=== PATIENT | female | born 1975 | race Caucasian/White ===

== ENCOUNTER 2016-11-25 05:14 | Day surgery (SDC) | payer OTHER ==
[2016-11-24 13:48] VITALS: BMI 26.1
[2016-11-25] MEDS ORDERED: MIDAZOLAM HCL 2 MG/2 ML SINGLE DOSE VIAL ONE (10:20)
[2016-11-25] MEDS ORDERED: PROPOFOL 20 ML ONE ×2 (10:20)
[2016-11-25] MEDS ORDERED: KETOROLAC TROMETHAMINE 30 MG/1 ML VIAL ONE (10:23)
[2016-11-25] MEDS ORDERED: ceFAZolin SODIUM 1 GM VIAL ONE (10:23)
[2016-11-25] MEDS ORDERED: LIDOCAINE HCL 1%, 10 MG/ML (20ML VIAL) ONE (10:57)
[2016-11-25] MEDS ORDERED: BUPIVACAINE HCL/PF 0.5% (5MG/ML) 10 ML VIAL ONE (10:57)
[2016-11-25] MEDS ORDERED: BUPIVACAINE HCL/PF 0.5% (5MG/ML) 10 ML VIAL IJ ONE (11:22)
[2016-11-25] MEDS ORDERED: LIDOCAINE HCL 1%, 10 MG/ML (50 mL VIAL) IJ ONE (11:22)
[2016-11-25] MEDS ORDERED: oxyCODONE HCL 5 MG TABLET PO PRN (11:52)
[2016-11-25] MEDS ORDERED: ONDANSETRON 4 MG/2 ML VIAL IVPUSH PRN (11:52)
--- NOTE | 2016-11-25 11:53 | HP ---
Satellite [facility] - Chief Complaint Chief Complaint: right Dequervain's History of Present Illness: right wrist pain History Source: Patient Limitations to Obtaining History: No Limitations - Past Medical History Allergies/Adverse Reactions: Allergies Allergy/AdvReac Type Severity Reaction Status Date / Time No Known Allergies Allergy Verified 11/24/16 13:40 ...LMP: 11/06/16 - Current Medications Current Medications: Home Medications Medication Instructions Recorded Loratadine [Claritin -] 10 mg PO DAILY #20 tablet 04/24/15 Ibuprofen [Motrin -] 600 mg PO TID #21 tablet 03/30/16 Acetaminophen [Tylenol] 650 mg PO PRN PRN 11/24/16 Satellite Physical Exam - Physical Examination Vital Signs: Vital Signs Period Temp Pulse Resp BP Sys/Louise Pulse Ox Last 24 Hr 97.9 F 58 18 108/66 100 General Appearance: Well Nourished ENT: Clear Lung: Clear to auscultation Heart: Regular rate & rhythm Breasts: Soft Abdomen: Soft Extremities: No edema Satellite Impression/Plan - Impression/Plan Impression: right Dequervain's Operative Procedure: right Dequervain's release, tendon sheath excision Date to be Performed: 11/25/16
--- NOTE | 2016-11-25 11:56 | OP ---
Operative Note - Note: Operative Date: 11/25/16 Pre-Operative Diagnosis: right Dequervain's Operation: right Dequervain's release, tendon sheath excision Post-Operative Diagnosis: Same as Pre-op Surgeon: Maycol Hutchins Procedure Writer: John Keane Anesthesiologist/RETAIL PERFORMANCE COACH: Anna Garnett Anesthesia: General, Local Specimens Removed: tendon sheath Estimated Blood Loss (mls): 0 Drains, Volume Out (mls): 0 Blood Volume Replaced (mls): 0 Fluid Volume Replaced (mls): 500 Operative Report Dictated: Yes
[2016-11-25] MEDS ORDERED: LACTATED RINGERS SOLUTION 1,000 ML IV SCH (12:00)
[2016-11-25] MEDS ORDERED: ACETAMINOPHEN INJECTION 100 ML IVPB ONE (13:16)
[2016-11-25] MEDS ORDERED: ACETAMINOPHEN 1000 MG/100 ML VIAL (NON FORMULARY) IVPB ONE ×2 (13:17→13:18)
[2016-11-25 14:22] VITALS: TEMP 98
[2016-11-25 17:26] VITALS: BP 115/77; PULSE 64
--- NOTE | 2016-11-26 13:07 | SPEC ---
DATE OF OPERATION: 11/25/2016 SURGERY: Right de Quervain release and tendon sheath excision. PREOPERATIVE DIAGNOSIS: Right de Quervain tenosynovitis. POSTOPERATIVE DIAGNOSIS: Right de Quervain tenosynovitis, SURGEON: Maycol Hutchins MD ASSISTANTS: Priyanka Ribera MD, Anna Garnett CRNA DRAINS: None. COMPLICATIONS: None. BLOOD LOSS: None. BLOOD GIVEN: None. FLUID REPLACEMENT: 500 mL SPECIMENS: Tendon sheath, right wrist. INDICATION: This patient is a 41-year-old female with a preoperative diagnosis of recurrent, severe right de Quervain tenosynovitis. After understanding the potential risks, complications, alternatives, benefits of surgery and risks of nonsurgical treatment., the patient elected to undergo this procedure. She received 1 gm of IV Ancef. PROCEDURE: The patient was brought to the operating room, a peripheral IV was placed and IV sedation was given. MAC anesthesia was induced. The tourniquet was applied to the right arm. The entire care was done under 3.8 loupe magnification. The right upper extremity was prepped and draped in a sterile fashion. A longitudinal incision was marked out with a marking pen. A mix of 10 mL of 0.5% Marcaine and 1% lidocaine was injected in and around the surgical area. The right upper extremity was then elevated and exsanguinated with an Esmarch bandage and the tourniquet was inflated to 250 mmHg. A no. 15 scalpel blade was utilized to make a longitudinal incision. Subcutaneous hemostasis was achieved with bipolar cautery. Dissection was done with Littler scissors down to the first dorsal wrist compartment. Great care was taken to directly visualize and preserve all crossing sensory branches of the sensory nerve. Under direct visualization, the first dorsal wrist compartment was visualized and it was freed up from some adhesions with a [place] elevator. Next, a fresh no. 15 scalpel blade was utilized to open up the first dorsal wrist compartment, starting proximally and going distally both with the no. 15 scalpel blade and with the Littler scissors. The anatomy was seen to have multiple slips of the abductor pollicis longus. The extensor pollicis brevis was in its own tendon tunnel. This was also released and the wall between the two excised. The roof of the tunnel was excised. This was all passed off the field as specimen. The volar lip of the first dorsal wrist compartment was preserved to prevent volar subluxation. The release was completed both distally and proximally in both compartments. I was able to bring out all slips through the wound with a Ragnell retractor and there were no obvious points of compression. The area was copiously irrigated and washed out, explored once more and I did not see any other abnormal tissue. Therefore, closure was begun. Undyed 4-0 Vicryl was used to close the deep dermal layer. Final skin reapproximation was done with a running subcuticular 4-0 Biosyn stitch. The area was then washed and dried, covered with Steri-Strips, 4 x 4's, Fluffs between the fingers. An Ortho-Glass thumb spica splint was applied and wrapped with Sandi and Coban. The tourniquet was taken down after a total tourniquet time of 22 minutes. There were no complications during the case. The patient tolerated the procedure quite well and was brought to the ambulatory recovery room in stable condition. PRIYANKA RIBERA M.D. [id number]
--- NOTE | 2016-11-26 15:29 | PATH ---
Surgical Pathology Report Patient Name: ION REAVES [facility]. Rec. #: [id number] /Age/Gender: 1975 (Age: 41) / F Account: [id number] Location: [facility] SURGICAL Taken: 11/25/2016 Received: 11/25/2016 Reported: 11/26/2016 Physicians: Wilfredo Rebolledo M.D. Specimen(s) Received RIGHT TENOSYNOVIUM Clinical History Right tenosynovitis Final Diagnosis SOFT TISSUE, RIGHT TENOSYNOVIUM, DEQUERVAIN'S RELEASE: BENIGN TENOSYNOVIAL FIBROCONNECTIVE TISSUE WITH FOCAL MYXOID DEGENERATION. Electronically Signed Justin Mo M.D. Gross Description Received in formalin labeled "right tenosynovium" is a 0.6 x 0.5 x 0.2 cm portion of garcia soft tissue. The specimen is submitted in toto in one cassette. /11/25/201611/25/2016
== END 2016-11-25 16:10 | disposition home or self-care (01) ==
LOC: JASU-SURG 05:14
PROVIDERS: ATTEND Orthopaedic Surgery
PROC: 0LB50ZZ Excision of Right Lower Arm and Wrist Tendon, Open Approach (ICD-10-PCS; principal; 2016-11-25 09:00)
DX: M65.4 Radial styloid tenosynovitis [de Quervain] (principal)
CPT/HCPCS: 84703; 88304-TC; 94760

== ENCOUNTER 2018-12-08 18:49 | Emergency (ER) | payer OTHER ==
[2018-12-08 19:05] VITALS: TEMP 98.3; BMI 29.6
--- NOTE | 2018-12-08 19:09 | PDOC ---
Rapid Medical Evaluation Chief Complaint: Pain, Acute Time Seen by Provider: 12/08/18 19:02 Medical Evaluation: Allergies Allergy/AdvReac Type Severity Reaction Status Date / Time No Known Allergies Allergy Verified 11/24/16 13:40 Vital Signs Temp Pulse Resp BP Pulse Ox 98.3 F 71 14 117/87 98 12/08/18 19:00 12/08/18 19:00 12/08/18 19:00 12/08/18 19:00 12/08/18 19:00 12/08/18 19:05 I have performed a brief in-person evaluation of this patient. The patient presents with a chief complaint of: BIBA with complains pain to whole right forearm and wrist and left ankle with swelling to left foot due to falling while going down excalator at a store over an hour ago. Patient report hitting head and had syncopal episode. Denies dizziness, N/V, BOWMAN Pertinent physical exam findings: moderate swelling to left foot and ankle with moderate TTP over left foot. TTP to right forearm with forearm in splint by EMS and sling I have ordered the following: x-ray of right forearm, wrist and left ankle / foot. head CT w/o contrast The patient will proceed to the ED for further evaluation. Discharge Disposition - Diagnosis Fall (on) (from) other stairs and steps, initial encounter - Discharge Dispostion Condition at time of disposition: Stable - Referrals - Patient Instructions - Post Discharge Activity
--- NOTE | 2018-12-08 20:06 | PDOC ---
History of Present Illness - General Chief Complaint: Pain, Acute Stated Complaint: RT ARM INJURY Time Seen by Provider: 12/08/18 19:02 History Source: Patient Exam Limitations: No Limitations - History of Present Illness Initial Comments: 12/08/18 20:06 HISTORY OF PRESENT ILLNESS: 43-year-old woman past medical history of carpal tunnel who presents emergency department for evaluation of headache, right wrist pain, left ankle pain status post fall on escalator while shopping. Patient reports she stepped on the down moving escalator when her foot slipped or she missed a step causing her to lose her balance fall forward down the escalator. Patient reports she stopped approximately usp down the escalator and reports she is unsure about loss of consciousness. Patient does report hearing her daughter speak to her as well as other people on the escalator and security staff. Patient reports she was unable to respond to them was not able to open her eyes and see them. Patient required assistance to get off the escalator with the help of emergency services. No recent travel or sick contacts. PAST MEDICAL HISTORY: see HPI SURGICAL HISTORY: Denies ALLERGIES: No known drug allergies REVIEW OF SYSTEMS General/Constitutional: Denies fever or chills. Denies weakness, weight change. HEENT: Denies change in vision. Denies ear pain or discharge. Denies sore throat. Cardiovascular: Denies chest pain or shortness of breath. Respiratory: Denies cough, wheezing, or hemoptysis. Gastrointestinal: Denies nausea, vomiting, diarrhea or constipation. Denies rectal bleeding. Genitourinary: Denies dysuria, frequency, or change in urination. Musculoskeletal:see HPI Skin and breasts: Denies rash or easy bruising. Neurologic: see HPI Psychiatric: Denies depression or anxiety. Endocrine: Denies increased thirst. Denies abnormal weight change. Hematologic/Lymphatic: Denies anemia, easy bleeding, or history of blood clots. Allergic/Immunologic: Denies hives or skin allergy. Denies latex allergy. PHYSICAL EXAM General Appearance: Well-appearing, appropriately dressed. No apparent distress , no intoxication. HEENT: EOMI, PERRLA, normal ENT inspection, normal voice, TMs normal without hemotympanum, pharynx normal. No conjunctival pallor. No photophobia, scleral icterus. (-)Deal's sign. No hematomas or ecchymoses present. Neck: Supple. Trachea midline. No tenderness, rigidity, carotid bruit, stridor , lymphadenopathy, or thyromegaly. FAROM. Respiratory/Chest: Lungs CTAB. No shortness of breath, chest tenderness, respiratory distress, accessory muscle use. No crackles, rales, rhonchi, stridor , wheezing, dullness Cardiovascular: RRR. S1, S2. No JVD, murmur, bradycardia, tachycardia. Vascular Pulses: Dorsalis-Pedis (R): 2+, Dorsalis-Pedis (L): 2+, Radial (R): 2+ , Radial (L): 2+ Gastrointestinal/Abdominal: Normal bowel sounds. Abdomen soft, non-distended. No tenderness or rebound tenderness. No organomegaly, pulsatile mass, guarding, hernia, hepatomegaly, splenomegaly. Lymphatic: No adenopathy, tenderness. Musculoskeletal/Extremities: Tenderness to palpation over the mid right radius. No palpable deformities, crepitus or step-offs noted. Limited range of motion of fingers due to pain. Capillary refill is within normal limits. Full sensation noted distal to pain. Tenderness over the left lateral malleolus, left navicular and fifth metatarsal bones dorsally. Limited range of motion due to pain. 2+ DP pulses present bilaterally. Full sensation distal to pain present. Capillary refill less than 2 seconds. No deformities, crepitus or step- offs present. Integumentary: Appropriate color, dry, warm. No cyanosis, erythema, jaundice or rash Neurologic: middle stitcher II-XII intact. Fully oriented, alert. Appropriate mood/affect. Motor strength 5/5. No appreciable EOM palsy, facial droop or sensory deficit. 12/08/18 20:57 Past History - Past Medical History Allergies/Adverse Reactions: Allergies Allergy/AdvReac Type Severity Reaction Status Date / Time No Known Allergies Allergy Verified 12/08/18 19:05 Home Medications: Ambulatory Orders Loratadine [Claritin -] 10 mg PO DAILY #20 tablet 04/24/15 Ibuprofen [Motrin -] 600 mg PO TID #21 tablet 03/30/16 Acetaminophen [Tylenol] 650 mg PO PRN PRN 11/24/16 Hydrocodone/Acetaminophen [Vicodin 5-300 mg Tablet] 1 - 2 tab PO TID PRN #40 tablet MDD 6 11/25/16 Anemia: No Asthma: No Cancer: No Cardiac Disorders: No CVA: No COPD: No CHF: No Dementia: No Diabetes: No GI Disorders: No Disorders: No HTN: No Hypercholesterolemia: No Liver Disease: No Seizures: No Thyroid Disease: No - Surgical History Abdominal Surgery: No Appendectomy: No Cardiac Surgery: No Cholecystectomy: No Lung Surgery: No Neurologic Surgery: No Orthopedic Surgery: No - Immunization History Td Vaccination: No TDAP Vaccination: No Immunization Up to Date: No - Suicide/Smoking/Psychosocial Hx Smoking History: Never smoked Have you smoked in the past 12 months: No Number of Cigarettes Smoked Daily: 0 Hx Alcohol Use: No Drug/Substance Use Hx: No Substance Use Type: None *Physical Exam - Vital Signs Last Vital Signs Temp Pulse Resp BP Pulse Ox 98.3 F 71 14 117/87 98 12/08/18 19:00 12/08/18 19:00 12/08/18 19:00 12/08/18 19:00 12/08/18 19:00 Medical Decision Making - Medical Decision Making 12/08/18 20:56 A/P: 43-year-old woman headache, facial pain, right wrist and left ankle pain status post fall on escalator Questionable LOC after head trauma Right wrist tender over the mid radius Left ankle with tenderness to the lateral malleolus, navicular and all 5 metatarsals dorsally CAT scan of the head X-rays Percocet Reassess CT of the head as read by Dr. Garcia: No evidence of focal intracranial lesion or hemorrhage seen. Correlate clinically to determine further evaluation and follow -up. 12/08/18 21:50 X-rays as read by Dr. Garcia: Right forearm- The alignment is satisfactory. No gross bone or soft tissue abnormality seen. No gross fracture or dislocation is identified. Right hand- It is satisfactory. No gross bone or soft tissue abnormality seen. No gross fracture or dislocation is identified. Left foot and ankle- The ankle mortise is intact. There is mild soft tissue swelling over the medial malleolus. No acute fracture, dislocation, bone destruction or periosteal elevation are identified. *DC/Admit/Observation/Transfer Diagnosis at time of Disposition: Fall (on) (from) other stairs and steps, initial encounter, Contusion of ankle or foot, left, Wrist pain, right Closed head injury Qualifiers: Encounter type: initial encounter Qualified Code(s): S09.90XA - Unspecified injury of head, initial encounter - Discharge Dispostion Disposition: HOME Condition at time of disposition: Stable Decision to Admit order: No - Referrals Referrals: Jasbir Elliott MD [Staff Physician] - - Patient Instructions Additional Instructions: Take Tylenol or Motrin as needed for pain. Follow manufacturers instructions for appropriate dosage. Try not to walk or bear weight on your left ankle as much as possible for the next 3 days. Apply ice for 20 minutes and removed for at least 20 minutes before reapplying the ice. Keep Chandler wrap on your ankle as much as possible to help decrease some of the swelling control pain. Whenever possible keep your foot elevated to decrease swelling to your ankle. You've been given the number for an orthopedist. If symptoms do not resolve within the next 7 days call the orthopedist for further evaluation. Return to emergency department for discoloration of the foot, numbness or tingling to the foot, worsening pain, or any other concerns. Thank you very much for choosing us to provide your emergent healthcare needs. - Post Discharge Activity Forms/Work/School Notes: Back to Work
--- NOTE | 2018-12-08 22:33 | PDOC ---
*Physical Exam - Vital Signs Last Vital Signs Temp Pulse Resp BP Pulse Ox 98.3 F 71 14 117/87 98 12/08/18 19:00 12/08/18 19:00 12/08/18 19:00 12/08/18 19:00 12/08/18 19:00 ED Treatment Course - ADDITIONAL ORDERS Additional order review: Laboratory Results 12/08/18 21:05 Urine HCG, Qual Negative - Medications Given in the ED: ED Medications Discontinued Medications Generic Name Dose Route Start Last Admin Trade Name Jabari PRN Reason Stop Dose Admin Oxycodone/Acetaminophen 2 combo 12/08/18 20:56 12/08/18 21:10 Percocet 5/325 - PO 12/08/18 20:57 2 combo ONCE ONE Administration Medical Decision Making - Medical Decision Making 12/08/18 22:33 Case discussed with HANDBAG PARTS CUTTER Gilbert Agree with assessment and plan *DC/Admit/Observation/Transfer Diagnosis at time of Disposition: Fall (on) (from) other stairs and steps, initial encounter, Contusion of ankle or foot, left, Wrist pain, right Closed head injury Qualifiers: Encounter type: initial encounter Qualified Code(s): S09.90XA - Unspecified injury of head, initial encounter - Discharge Dispostion Disposition: HOME Condition at time of disposition: Stable - Referrals Referrals: Jasbir Elliott MD [Staff Physician] - - Patient Instructions Additional Instructions: Take Tylenol or Motrin as needed for pain. Follow manufacturers instructions for appropriate dosage. Try not to walk or bear weight on your left ankle as much as possible for the next 3 days. Apply ice for 20 minutes and removed for at least 20 minutes before reapplying the ice. Keep Chandler wrap on your ankle as much as possible to help decrease some of the swelling control pain. Whenever possible keep your foot elevated to decrease swelling to your ankle. You've been given the number for an orthopedist. If symptoms do not resolve within the next 7 days call the orthopedist for further evaluation. Return to emergency department for discoloration of the foot, numbness or tingling to the foot, worsening pain, or any other concerns. Thank you very much for choosing us to provide your emergent healthcare needs. - Post Discharge Activity Forms/Work/School Notes: Back to Work
[2018-12-08 23:20] VITALS: BP 115/82; PULSE 78
== END 2018-12-08 23:20 | disposition home or self-care (01) ==
LOC: JER 18:49
DX: S09.8XXA Other specified injuries of head, initial encounter (principal); M25.531 Pain in right wrist; M25.572 Pain in left ankle and joints of left foot; W10.0XXA Fall (on)(from) escalator, initial encounter; Y93.89 Activity, other specified; Y92.512 Supermarket, store or market as the place of occurrence of the external cause; Y99.8 Other external cause status
CPT/HCPCS: 70450-TC; 73090-TC-RT-FY; 73110-TC-RT-FY; 73130-TC-RT-FY; 73610-TC-LT-FY; 73630-TC-LT; 84703; 99282-25

== ENCOUNTER 2023-02-24 13:21 | Emergency (ER) | payer OTHER ==
[2023-02-24 13:37] VITALS: RESP 16; TEMP 97.7; BMI 29.9
[2023-02-24] MEDS ORDERED: KETOROLAC TROMETHAMINE 30 MG/1 ML VIAL IM ONE (14:19)
[2023-02-24] MEDS ORDERED: KETOROLAC TROMETHAMINE 30 MG/1 ML VIAL ONE (14:45)
[2023-02-24] MEDS ORDERED: METHOCARBAMOL 500 MG TABLET PO ONE ×2 (14:46→15:03)
[2023-02-24] MEDS ORDERED: LIDOCAINE 5% TOPICAL PATCH TP ONE (14:46)
[2023-02-24] MEDS ORDERED: METHOCARBAMOL 500 MG TABLET ONE (15:04)
[2023-02-24] MEDS ORDERED: LIDOCAINE 5% TOPICAL PATCH ONE (17:14)
[2023-02-24 18:16] VITALS: BP 137/87; PULSE 69
[2023-02-24] MEDS ORDERED: LIDOCAINE PATCH REMOVAL MC ONE (22:00)
== END 2023-02-24 18:22 | disposition home or self-care (01) ==
LOC: JER 13:21
PROC: 3E0233Z Introduction of Anti-inflammatory into Muscle, Percutaneous Approach (ICD-10-PCS; principal; 2023-02-24)
DX: S13.9XXA Sprain of joints and ligaments of unspecified parts of neck, initial encounter (principal); R20.2 Paresthesia of skin; V43.53XA Car driver injured in collision with pick-up truck in traffic accident, initial encounter
CPT/HCPCS: 70450-TC; 72125-TC; 72128-TC; 72131-TC; 99284-25

== ENCOUNTER 2023-12-12 20:36 | Emergency (ER) | payer OTHER ==
[2023-12-12 20:42] VITALS: BP 127/79; PULSE 98; RESP 18; TEMP 98.8; BMI 30.2
[2023-12-12] MEDS ORDERED: AMOXICILLIN 250 MG CAPSULE ONE (21:11)
[2023-12-12] MEDS: AMOXICILLIN 500 MG CAPSULE (FP) PO ONE (21:12)
== END 2023-12-12 21:44 | disposition home or self-care (01) ==
LOC: JERFT 20:36
DX: J02.0 Streptococcal pharyngitis (principal)
CPT/HCPCS: 99283-25